=== PATIENT | female | born 1930 | race Hispanic/Latino ===

== ENCOUNTER 2018-11-05 15:42 | Inpatient (IN) | payer MEDICARE ==
[~2018-11-05] VITALS: Ht 165.1 cm; Wt 74.4 kg
[2018-11-05 17:26] LABS: BASOPHILS % (AUTO) 0.1 % (0.0-5.0); EOSINOPHILS % (AUTO) 1.5 % (0.0-8.0); HEMATOCRIT 35.7 % (36-48); LYMPHOCYTES % (AUTO) 25.7 % (21.0-51.0); MEAN CORPUSCULAR HEMOGLOBIN 33.2 pg (27.0-33.0); MEAN CORPUSCULAR HGB CONC 34.2 g/dL (32.0-36.0); MEAN CORPUSCULAR VOLUME 96.9 fL (79-99); MONOCYTES % (AUTO) 10.4 % (3.0-13.0); NEUTROPHILS % (AUTO) 62.3 % (40.0-77.0); PLATELET COUNT (AUTO) 196 K/uL (130-400); RED BLOOD CELL COUNT(AUTO) 3.68 MIL/uL (4.00-5.50); RED CELL DISTRIBUTION WIDTH 13.8 % (11.0-15.5)
[2018-11-05 17:36] LABS: CREATININE 1.1 mg/dL (0.5-1.5); POTASSIUM 3.6 mmol/L (3.5-5.1)
[2018-11-05 17:38] LABS: INR 0.95 (0.85-1.15); PARTIAL THROMBOPLASTIN TIME 25.9 SEC (26.3-35.5)
[2018-11-05 17:40] LABS: ALBUMIN 3.3 g/dL (3.5-5.0); BILIRUBIN,TOTAL 1.2 mg/dL (0.2-1.0); CRP QUANTITATIVE 30.6 mg/L (0.00-9.0); TOTAL PROTEIN, SERUM 6.6 g/dL (6.0-8.3)
[2018-11-05] MEDS ORDERED: IOHEXOL-350 75 ML VIAL IV ONE (18:23)
[2018-11-05 18:37] LABS: B-TYPE NATRIURETIC PEPTIDE 261 pg/mL (0-100)
[2018-11-05] MEDS ORDERED: SODIUM CHLORIDE 0.9% 500 ML IV ONE (18:51)
[2018-11-05 19:07] LABS: ERYTHROCYTE SEDIMENTATION RATE 32 MM/HR (0-30)
[2018-11-05] MEDS: SODIUM CHLORIDE 0.9% 1000ML 1,000 ML IV SCH (19:41)
[2018-11-05] MEDS ORDERED: NITROGLYCERIN 0.4 MG SL TAB SL PRN (19:45)
[2018-11-05] MEDS ORDERED: ONDANSETRON HCL 4 MG/2 ML VIAL IV PRN (19:45)
[2018-11-05] MEDS ORDERED: ACETAMINOPHEN 325 MG TAB PO PRN ×2 (19:45)
[2018-11-05] MEDS ORDERED: IPRATROPIUM/ALBUTEROL SULFATE 3 ML SOLUTION IH PRN (19:45)
[2018-11-05] MEDS ORDERED: WARFARIN SODIUM 5 MG TAB PO STA (20:31)
[2018-11-05] MEDS ORDERED: MORPHINE SULFATE 2 MG/ML 1ML SYG ONE (21:06)
[2018-11-05 21:07] LABS: APPEARANCE,URINE Cloudy (CLEAR); BILIRUBIN,URINE Negative (NEGATIVE); COLOR,URINE Dark Yellow (YELLOW); GLUCOSE, URINE (UA) Negative (NEGATIVE); KETONES,URINE Trace mg/dL (NEGATIVE); LEUKOCYTE ESTERASE ,URINE Moderate (NEGATIVE); NITRATE,URINE Positive (NEGATIVE); OCCULT BLOOD,URINE Trace (NEGATIVE); PROTEIN,URINE Negative (NEGATIVE)
[2018-11-05] MEDS ORDERED: FAMOTIDINE 20MG TAB 20 MG TAB ONE (21:09)
[2018-11-05 21:27] LABS: BACTERIA,URINE Moderate /HPF (None Seen); RBC,URINE None Seen /HPF (0-1); SQUAMOUS EPITHELIAL CELL,UR 0-2 /HPF (0-2)
[2018-11-05 22:14] VITALS: BP 161/78
[2018-11-05] MEDS ORDERED: MAGNESIUM 2GM PREMIX 50ML 50 ML IV PRN (22:45)
[2018-11-05] MEDS: HEPARIN 25000 UNITS/250 ML D5W 250 ML IV PRN (23:20)
[2018-11-05] MEDS ORDERED: CEFTRIAXONE SODIUM 1 GM ONE (23:39)
[2018-11-05] MEDS: CEFTRIAXONE SODIUM 1 GM IVP SCH (23:41)
[2018-11-05 23:57] VITALS: BP 158/66
[2018-11-06] MEDS ORDERED: ESCI10TA54 PO (01:08)
[2018-11-06] MEDS ORDERED: ESOM40CA PO (01:08)
[2018-11-06] MEDS ORDERED: DONE10TA8 PO (01:08)
[2018-11-06] MEDS ORDERED: LISI-613 PO (01:08)
[2018-11-06] MEDS ORDERED: MECL-111 PO (01:08)
[2018-11-06] MEDS ORDERED: NAPR500T6 PO (01:08)
[2018-11-06 05:11] VITALS: BP 155/85
[2018-11-06 05:47] LABS: BASOPHILS % (AUTO) 0.3 % (0.0-5.0); EOSINOPHILS % (AUTO) 3.4 % (0.0-8.0); HEMATOCRIT 33.3 % (36-48); LYMPHOCYTES % (AUTO) 33.7 % (21.0-51.0); MEAN CORPUSCULAR HEMOGLOBIN 32.2 pg (27.0-33.0); MEAN CORPUSCULAR HGB CONC 33.4 g/dL (32.0-36.0); MEAN CORPUSCULAR VOLUME 96.5 fL (79-99); MONOCYTES % (AUTO) 10.3 % (3.0-13.0); NEUTROPHILS % (AUTO) 52.3 % (40.0-77.0); NUCLEATED RED BLOOD CELLS 0.1 % (0.0-0.19); PLATELET COUNT (AUTO) 183 K/uL (130-400); RED BLOOD CELL COUNT(AUTO) 3.45 MIL/uL (4.00-5.50); RED CELL DISTRIBUTION WIDTH 13.4 % (11.0-15.5); WHITE BLOOD COUNT (AUTO) 6.5 K/uL (4.8-10.8)
[2018-11-06 06:02] LABS: INR 0.97 (0.85-1.15); PARTIAL THROMBOPLASTIN TIME 83.9 SEC (26.3-35.5); PROTHROMBIN TIME 10.2 SEC (9.6-11.6)
[2018-11-06 06:11] LABS: ALBUMIN 2.9 g/dL (3.5-5.0); BILIRUBIN,TOTAL 1.1 mg/dL (0.2-1.0); CREATININE 0.7 mg/dL (0.5-1.5); POTASSIUM 3.3 mmol/L (3.5-5.1)
[2018-11-06] MEDS ORDERED: POTASSIUM CHLORIDE 20MEQ/100ML 100 ML IV PRN (06:30)
[2018-11-06] MEDS ORDERED: POTASSIUM CHLORIDE 10% ELIXIR 20 MEQ/15 ML UDCUP PO PRN (06:30)
[2018-11-06] MEDS ORDERED: POTASSIUM CHLORIDE 20 MEQ ERTAB PO PRN (06:30)
[2018-11-06] MEDS ORDERED: LIDOCAINE HCL-MPF 1% 2ML VIAL IVP PRN (06:30)
[2018-11-06] MEDS ORDERED: POTASSIUM CHLORIDE 20 MEQ ERTAB PO ONE (06:36)
[2018-11-06 07:40] VITALS: BP 165/81
[2018-11-06] MEDS ORDERED: FAMOTIDINE 20MG TAB 20 MG TAB PO SCH (09:00)
[2018-11-06 11:07] VITALS: BP 151/67
[2018-11-06] MEDS ORDERED: WARFARIN SODIUM 5 MG TAB PO SCH ×2 (16:00)
[2018-11-06 16:03] VITALS: BP 150/69
--- NOTE | 2018-11-06 16:11 | NUR ---
INITIAL: Met with pt and dtr Maru this afternoon to discuss dcp. [place]. Pt mentions that prior to admission she was living alone, she is independent w ambulation and ADLs. She does not own any DME. Per pt prior to admission she was receiving PT/OT services from [facility] . Pt mentions that she feels safe and comfortable to return home at sd. CM to continue to follow and wait for Md recommendations. Addendum: 11/06/18 at 1616 by MAXIMILIAN CORTEZ Amended: Links added.
[2018-11-06 19:16] VITALS: BP 154/87
[2018-11-06] MEDS: SODIUM CHLORIDE 0.9% 1000ML 1,000 ML IV SCH (19:49)
[2018-11-06] MEDS: HEPARIN 25000 UNITS/250 ML D5W 250 ML IV PRN (19:55)
[2018-11-06] MEDS: CEFTRIAXONE SODIUM 1 GM IVP SCH (22:28)
[2018-11-06 23:14] VITALS: BP 180/83
[2018-11-06] MEDS ORDERED: LISINOPRIL 20 MG TABLET ONE (23:35)
[2018-11-06] MEDS ORDERED: HYDRALAZINE HCL 20 MG/ML VIAL IV PRN (23:45)
[2018-11-06] MEDS ORDERED: NAPROXEN 500 MG TABLET PO PRN (23:45)
[2018-11-06] MEDS ORDERED: MECLIZINE HCL 25 MG TABLET PO PRN (23:45)
[2018-11-07 03:36] VITALS: BP 141/79
[2018-11-07] MEDS: SODIUM CHLORIDE 0.9% 1000ML 1,000 ML IV SCH (05:08)
[2018-11-07 07:19] LABS: BASOPHILS % (AUTO) 0.2 % (0.0-5.0); EOSINOPHILS % (AUTO) 4.2 % (0.0-8.0); LYMPHOCYTES % (AUTO) 30.9 % (21.0-51.0); MEAN CORPUSCULAR HGB CONC 34.3 g/dL (32.0-36.0); MEAN CORPUSCULAR VOLUME 96.3 fL (79-99); MONOCYTES % (AUTO) 9.8 % (3.0-13.0); NEUTROPHILS % (AUTO) 54.9 % (40.0-77.0); PLATELET COUNT (AUTO) 189 K/uL (130-400); RED BLOOD CELL COUNT(AUTO) 3.42 MIL/uL (4.00-5.50); RED CELL DISTRIBUTION WIDTH 13.5 % (11.0-15.5); WHITE BLOOD COUNT (AUTO) 5.6 K/uL (4.8-10.8)
[2018-11-07 07:20] VITALS: BP 162/78
[2018-11-07 07:49] LABS: PROTHROMBIN TIME 10.5 SEC (9.6-11.6)
--- NOTE | 2018-11-07 08:00 | NUR ---
NAJMA GALLEGOS MADE AWARE OF URINE SUSCEPTIBILITY.
[2018-11-07] MEDS: DONEPEZIL HCL 5 MG TAB PO SCH (09:56)
[2018-11-07] MEDS: CITALOPRAM 20 MG TABLET PO SCH (09:56)
[2018-11-07] MEDS: PANTOPRAZOLE SODIUM 40 MG TABLET.DR PO SCH (09:56)
[2018-11-07] MEDS: LISINOPRIL 20 MG TABLET PO SCH (09:57)
--- NOTE | 2018-11-07 10:00 | NUR ---
MD ROUNDS DR. GRAY IN TO SEE PATIENT.
[2018-11-07 10:30] VITALS: BP 140/67
[2018-11-07 12:14] LABS: INR 1.02 (0.85-1.15); PARTIAL THROMBOPLASTIN TIME 56.5 SEC (26.3-35.5); PROTHROMBIN TIME 10.7 SEC (9.6-11.6)
[2018-11-07] MEDS: ZOSYN 3.375GM+NS 50ML 50 ML IV SCH ×2 (14:25→20:32)
--- NOTE | 2018-11-07 15:00 | NUR ---
MD ROUNDS DR. BARRERA IN TO SEE PATIENT. POSSIBLE DISCHARGE TOMORROW.
[2018-11-07 15:56] VITALS: BP 145/75
[2018-11-07 18:56] LABS: INR 1.03 (0.85-1.15); PARTIAL THROMBOPLASTIN TIME 58.8 SEC (26.3-35.5); PROTHROMBIN TIME 10.8 SEC (9.6-11.6)
[2018-11-07 19:09] VITALS: BP 152/68
[2018-11-07] MEDS: APIXABAN 5 MG TABLET PO SCH (20:34)
[2018-11-07] MEDS ORDERED: NYSTATIN-TRIAMCINOLONE CREAM 15 GM TP SCH (21:00)
[2018-11-07 23:06] VITALS: BP 164/73
[2018-11-08 03:39] VITALS: BP 194/91
[2018-11-08 04:15] LABS: BASOPHILS % (AUTO) 0.3 % (0.0-5.0); EOSINOPHILS % (AUTO) 4.5 % (0.0-8.0); HEMATOCRIT 33.5 % (36-48); MEAN CORPUSCULAR HEMOGLOBIN 32.2 pg (27.0-33.0); MEAN CORPUSCULAR HGB CONC 33.5 g/dL (32.0-36.0); MEAN CORPUSCULAR VOLUME 95.9 fL (79-99); MONOCYTES % (AUTO) 8.6 % (3.0-13.0); NEUTROPHILS % (AUTO) 51.6 % (40.0-77.0); PLATELET COUNT (AUTO) 209 K/uL (130-400); RED BLOOD CELL COUNT(AUTO) 3.49 MIL/uL (4.00-5.50); RED CELL DISTRIBUTION WIDTH 13.5 % (11.0-15.5); WHITE BLOOD COUNT (AUTO) 5.7 K/uL (4.8-10.8)
[2018-11-08 04:32] LABS: INR 1.07 (0.85-1.15); PARTIAL THROMBOPLASTIN TIME 49.5 SEC (26.3-35.5); PROTHROMBIN TIME 11.2 SEC (9.6-11.6)
[2018-11-08] MEDS: ZOSYN 3.375GM+NS 50ML 50 ML IV SCH ×2 (04:41→12:30)
[2018-11-08] MEDS: HEPARIN 25000 UNITS/250 ML D5W 250 ML IV PRN (04:46)
[2018-11-08 06:15] VITALS: BP 145/64
--- NOTE | 2018-11-08 07:30 | NUR ---
ASSESSMENT ENCOUNTERED PT A&OX3, CALM COOPERATIVE AND DOES NOT APPEAR TO BE IN ANY DISTRESS NOR ANY NEURO DEFICITS PRESENT. PT DENIES PAIN, SOB, NAUSEA. PT DOES HAVE EDEMA TO LOWER EXTREMITIES TO RT > LT. PT ON BEDREST UNTIL CLEARED BY PULMONOLOGY. CALL LIGHT WITHIN REACH, FAMILY AT BEDSIDE.
[2018-11-08 07:42] VITALS: BP 149/65
[2018-11-08] MEDS: LISINOPRIL 20 MG TABLET PO SCH (08:51)
[2018-11-08] MEDS: PANTOPRAZOLE SODIUM 40 MG TABLET.DR PO SCH (08:52)
[2018-11-08] MEDS: CITALOPRAM 20 MG TABLET PO SCH (08:52)
[2018-11-08] MEDS: APIXABAN 5 MG TABLET PO SCH (08:52)
[2018-11-08] MEDS: DONEPEZIL HCL 5 MG TAB PO SCH (08:53)
--- NOTE | 2018-11-08 09:00 | NUR ---
DR GRAY AT BEDSIDE UPDATE GIVEN, ORDERS RECEIVED.
--- NOTE | 2018-11-08 09:10 | NUR ---
AMBULATION PT AMBULATING TO BATHROOM AND BACK TO CHAIR WITH ASSISTANCE, A&OX3 BUT FORGETFUL, GAIT SLOW AND UNSTEADY. CALM COOPERATIVE AND DOES NOT APPEAR TO BE IN ANY DISTRESS NOR ANY NEURO DEFICITS PRESENT. PT DENIES PAIN, DIZZINESS OR LIGHTHEADEDNESS. PT IS ABLE TO TOLERATE FOODS, FLUIDS WITH NO THROAT CLEARING OR COUGH. CALL LIGHT WITHIN REACH, FAMILY AT BEDSIDE.
[2018-11-08 11:51] VITALS: BP 150/70
[2018-11-08 15:35] VITALS: BP 150/71
[2018-11-08] MEDS ORDERED: APIX5TAB PO ×2 (15:37)
[2018-11-08] MEDS ORDERED: LEVO500T2 PO (15:54)
--- NOTE | 2018-11-08 16:00 | NUR ---
DISCHARGE INSTRUCTIONS GIVEN, PIV REMOVED AND INTACT, DISCHARGED HOME TO FAMILY VEHICLE VIA WHEELCHAIR.
== END 2018-11-08 16:53 | disposition home or self-care (01) | DRG 299 ==
LOC: EDH 15:42 → EDHIP 19:41 → 2DH 22:09
PROVIDERS: ADMIT Hospitalist; ATTEND Hospitalist
DX: I80.01 Phlebitis and thrombophlebitis of superficial vessels of right lower extremity (principal); I26.09 Other pulmonary embolism with acute cor pulmonale; N39.0 Urinary tract infection, site not specified; I50.22 Chronic systolic (congestive) heart failure; I13.0 Hypertensive heart and chronic kidney disease with heart failure and stage 1 through stage 4 chronic kidney disease, or unspecified chronic kidney disease; N18.9 Chronic kidney disease, unspecified; E11.22 Type 2 diabetes mellitus with diabetic chronic kidney disease; I49.3 Ventricular premature depolarization; R06.89 Other abnormalities of breathing; B96.20 Unspecified Escherichia coli [E. coli] as the cause of diseases classified elsewhere; E78.00 Pure hypercholesterolemia, unspecified; F32.9 Major depressive disorder, single episode, unspecified; K44.9 Diaphragmatic hernia without obstruction or gangrene; Z74.01 Bed confinement status; Z79.01 Long term (current) use of anticoagulants; Z83.3 Family history of diabetes mellitus
CPT/HCPCS: 36415; 71045; 71275; 80053; 81001; 82270; 82550; 83735; 83880; 84484; 85025; 85610; 85651; 85730; 86140; 87040; 87077; 87088; 87186; 93005; 93306; 93971; 94664; G0378; J0360; J0696; J1644; J2543; J7030; Q9967